=== PATIENT | female | born 1955 | race Caucasian/White ===

== ENCOUNTER 2021-09-10 07:55 | Outpatient (RCR) | payer MEDICARE, SELFPAY ==
[2021-09-10 07:59] VITALS: BMI 30.2
[2021-09-10 08:10] VITALS: BMI 30.2
[2021-09-10 09:40] VITALS: BMI 30.2
== END 2021-11-25 11:59 | disposition home or self-care (01) ==
LOC: ANHDMC 07:55
PROVIDERS: PCP Nurse Practitioner Adult Health; Visit Provider Nurse Practitioner Adult Health
DX: E11.65 Type 2 diabetes mellitus with hyperglycemia (principal); Z71.3 Dietary counseling and surveillance
CPT/HCPCS: 97802